=== PATIENT | female | born 1955 | race Caucasian/White ===

== ENCOUNTER 2020-06-05 10:22 | Outpatient (CLI) | payer MEDICARE, MEDICAID | END 2020-06-05 10:23 | disposition home or self-care (01) | LOC: CSHMRI 10:22 | PROVIDERS: ATTEND Family Medicine | DX: S22.070A Wedge compression fracture of T9-T10 vertebra, initial encounter for closed fracture (principal); M47.814 Spondylosis without myelopathy or radiculopathy, thoracic region | CPT/HCPCS: 72146 ==

== ENCOUNTER 2022-04-19 08:03 | Outpatient (CLI) | payer MEDICARE, MEDICAID | END 2022-04-19 08:04 | disposition home or self-care (01) | LOC: CSHMRI 08:03 | PROVIDERS: ATTEND Family Medicine | DX: M16.11 Unilateral primary osteoarthritis, right hip (principal); M25.551 Pain in right hip; M84.451A Pathological fracture, right femur, initial encounter for fracture; S73.191A Other sprain of right hip, initial encounter ==